=== PATIENT | female | born 1960 | race Caucasian/White ===

== ENCOUNTER 2021-06-30 14:30 | Emergency (ER) | payer MEDICAID ==
[~2021-06-30] VITALS: Ht 167.6 cm; Wt 61.0 kg
[2021-06-30 14:36] VITALS: BP 162/84
== END 2021-06-30 15:58 | disposition home or self-care (01) ==
LOC: ER 14:30
DX: R13.10 Dysphagia, unspecified (principal); I10 Essential (primary) hypertension
CPT/HCPCS: 99283